=== PATIENT | female | born 1990 | race Hispanic/Latino ===

== ENCOUNTER 2019-11-03 23:07 | Emergency (ER) | payer SELFPAY ==
--- NOTE | 2019-11-03 23:34 | Emergency Department Report ---
<CHUY TREVIZOAlonzo - Last Filed: 11/04/19 02:39> History of Present Illness - General Chief Complaint: Overdose Stated Complaint: ALTERED MENTAL STATUS Time Seen by Provider: 11/03/19 23:24 Source: patient, EMS Mode of arrival: Stretcher Limitations: No Limitations - History of Present Illness Initial Comments: 28 yo F, found at [facility] parking lot unresponsive. Pt overdosed on heroine. Initial GCS of 3. pt was given 2mg Narcan by EMS, now A&O x 3. Patient denies SI or HI. 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 States she broke up with her significant other and decided to use heroin in order to feel better. States has been to rehab in the past. Denies any alcohol use or other drug use. MD Complaint: accidental overdose -: This evening Context: Intentional Overdose: relationship problems Context: Accidental Overdose: wanted to get high Treatments Prior to Arrival: narcan - Related Data Previous Rx's Medication Instructions Recorded Last Taken Type Naloxone HCl [Narcan Nasal [place]] 4 mg NS PRN PRN #1 spray 11/04/19 Unknown Rx Allergies Allergy/AdvReac Type Severity Reaction Status Date / Time No Known Allergies Allergy Unverified 11/03/19 23:31 ED Review of Systems Comment: All other systems reviewed and negative Psychiatric: denies: suicidal thoughts ED Past Medical Hx - Past Medical History Previous Medical History?: Yes Hx Psychiatric Treatment: Yes (Bi-polar) - Social History Smoking Status: Current Every Day Smoker Substance Use Type: Alcohol - Medications Home Medications: Home Medications Medication Instructions Recorded Confirmed Last Taken Type Naloxone HCl [Narcan Nasal [place]] 4 mg NS PRN PRN #1 spray 11/04/19 Unknown Rx ED Physical Exam - General Limitations: No Limitations General appearance: lethargic (but arousable) - Head Head exam: Present: atraumatic, normocephalic - Eye Eye exam: Present: normal appearance, PERRL, EOMI - ENT ENT exam: Present: mucous membranes moist - Neck Neck exam: Present: normal inspection - Respiratory Respiratory exam: Present: normal lung sounds bilaterally. Absent: respiratory distress - Cardiovascular Cardiovascular Exam: Present: regular rate, normal rhythm - GI/Abdominal GI/Abdominal exam: Present: soft. Absent: distended, tenderness - Extremities Exam Extremities exam: Present: normal inspection, other (no obvious track russo or cellulitis) - Neurological Exam Neurological exam: Present: alert, oriented X3, CN II-XII intact. Absent: motor sensory deficit - Psychiatric Psychiatric exam: Present: normal affect, normal mood - Skin Skin exam: Present: warm, dry, intact, normal color ED Course - Reevaluation(s) Reevaluation #1: 11/04/19 01:40 Pt sleeping but easily arousable to name. Does not require additional narcan at this time. Vitals stable. Will continue to observe. ED Medical Decision Making - Lab Data Result diagrams: 11/03/19 23:37 11/03/19 23:37 - EKG Data -: EKG Interpreted by Me EKG shows normal: sinus rhythm, axis, intervals, QRS complexes, ST-T waves Rate: normal - Radiology Data Radiology results: report reviewed, image reviewed - Medical Decision Making 28 yo F presents to ED following accidental heroin overdose. Pt was found unresponsive, immediately improved w/ narcan given by EMS. Here in ED pt has been sleeping, but arousable to name. Has not required additional narcan. Pt has elevated WBCs. She is afebrile and vitals are stable. CXR shows atelecatasis, no infiltrate. Leukocytosis likely due to metabolic stress of overdosing. Pt reports she had been off of heroin for 1 year, but breakup w/ significant other caused her to use again. Has been to rehab in the past. Pt agrees to a mental health consult, which is pending. - Differential Diagnosis accidental heroin overdose ED Disposition Clinical Impression: Accidental heroin overdose Qualifiers: Encounter type: initial encounter Qualified Code(s): T40.1X1A - Poisoning by heroin, accidental (unintentional), initial encounter Disposition: DC-01 TO HOME OR SELFCARE Condition: Stable Instructions: Narcotic Abuse (ED) Additional Instructions: Do not drive or operate motor vehicles until cleared to do so by her primary care doctor. Follow-up with your primary care doctor within the next week. Recommend that patient does not consume alcohol, heroin, or recreational drugs. Consumption of the aforementioned may result in addiction, , disability, paralysis, loss of quality of life. Use the Narcan medication as needed for symptoms of opioid overdose, including change in mental status, sleepiness, respiratory depression. Return to the emergency room right away with new, worsened or different symptoms, or symptoms not present on the initial emergency room evaluation. Referrals: [facility] [Provider Group] - as needed <CHERYL HAIRSTON - Last Filed: 11/04/19 05:13> ED Review of Systems ROS: Stated complaint: ALTERED MENTAL STATUS Other details as noted in HPI ED Course Vital Signs 11/03/19 11/03/19 11/03/19 23:12 23:15 23:21 Temperature 97.8 F Pulse Rate 93 H 91 H 89 Respiratory 14 18 16 Rate Blood Pressure 105/70 105/70 Blood Pressure 105/70 [Left] O2 Sat by Pulse 96 92 Oximetry 11/03/19 11/03/19 11/03/19 23:29 23:30 23:45 Temperature Pulse Rate 89 85 Respiratory 16 16 11 L Rate Blood Pressure 103/65 109/65 Blood Pressure [Left] O2 Sat by Pulse 92 Oximetry 11/04/19 11/04/19 11/04/19 00:00 00:15 00:30 Temperature Pulse Rate 85 91 H 89 Respiratory 13 11 L 12 Rate Blood Pressure 100/70 111/60 101/67 Blood Pressure [Left] O2 Sat by Pulse 96 100 100 Oximetry 11/04/19 11/04/19 11/04/19 00:45 01:01 01:15 Temperature Pulse Rate 95 H 88 75 Respiratory 12 11 L 10 L Rate Blood Pressure 107/68 117/66 108/57 Blood Pressure [Left] O2 Sat by Pulse 100 100 Oximetry 11/04/19 11/04/19 11/04/19 01:30 01:45 02:00 Temperature Pulse Rate 74 86 72 Respiratory 10 L 11 L 11 L Rate Blood Pressure 121/72 124/79 117/70 Blood Pressure [Left] O2 Sat by Pulse 100 96 100 Oximetry 11/04/19 11/04/19 11/04/19 02:15 02:31 02:45 Temperature Pulse Rate 69 67 70 Respiratory 11 L 10 L 11 L Rate Blood Pressure 102/65 108/60 108/77 Blood Pressure [Left] O2 Sat by Pulse 97 99 Oximetry 11/04/19 11/04/19 03:00 03:15 Temperature Pulse Rate 76 88 Respiratory 12 13 Rate Blood Pressure 115/73 113/72 Blood Pressure [Left] O2 Sat by Pulse 99 98 Oximetry - Reevaluation(s) Reevaluation #2: 11/04/19 05:11 Patient is awake, alert, oriented, clinically sober, walking with a steady gait at this time, and exhibits decision-making capacity. Her mental status has continued to improve since she has been here. I went back in to evaluate the patient. She is not homicidal or suicidal. At this point in time, she indicates she can follow-up as an outpatient because she is concerned about exposure to the coronavirus. She will be discharged at this time. ED Medical Decision Making - Lab Data Result diagrams: 11/03/19 23:37 11/03/19 23:37 Critical care attestation.: If time is entered above; I have spent that time in minutes in the direct care of this critically ill patient, excluding procedure time. ED Disposition Is pt being admited?: No Does the pt Need Aspirin: No
[2019-11-03] MEDS ORDERED: SODIUM CHLORIDE 0.9% 1000 ML 1,000 ML IV ONE (23:36)
[2019-11-03 23:52] LABS: Hematocrit 37.4 % (30.3-42.9); Hemoglobin 12.2 gm/dl (10.1-14.3); Mean Corpuscular HGB Conc 33 % (30-34); Mean Corpuscular Volume 89 fl (79-97); Platelet Count 275 K/mm3 (140-440); Red Blood Count 4.23 M/mm3 (3.65-5.03); Red Cell Distribution Width 15.1 % (13.2-15.2)
[2019-11-04 00:30] LABS: BUN/Creatinine Ratio 16; Blood Urea Nitrogen 14 mg/dL (7-17); Calcium 8.8 mg/dL (8.4-10.2); Hemolysis Index 12
--- NOTE | 2019-11-04 01:55 | XRay Report ---
CHEST 1 VIEW 0113 INDICATION / CLINICAL INFORMATION: ams. COMPARISON: None available. FINDINGS: SUPPORT DEVICES: None HEART / MEDIASTINUM: No significant abnormality. LUNGS / PLEURA: Poor degree of inspiration is seen. Bibasilar atelectatic changes are noted. No defin ite areas of consolidation are seen. No pneumothorax. ADDITIONAL FINDINGS: No significant additional findings. IMPRESSION: Basilar atelectasis Signer Name: Maciej Castro MD Signed: 11/04/2019 1:50 AM Workstation Name: [id number]
[2019-11-04] MEDS ORDERED: NALOXONE 0.4 MG/1 ML INJ IV PRN (02:57)
[2019-11-04 03:10] LABS: Basophils % (Manual) 0 % (0.0-1.8); Eosinophils % (Manual) 0 % (0.0-4.3); Total Cells Counted 100
[2019-11-04 03:11] LABS: Platelet Estimate Consistent w Auto
[2019-11-04 03:27] VITALS: BP 113/72
== END 2019-11-04 05:20 | disposition home or self-care (01) ==
LOC: ED 23:07
DX: T40.1X1A Poisoning by heroin, accidental (unintentional), initial encounter (principal); F31.9 Bipolar disorder, unspecified; F17.200 Nicotine dependence, unspecified, uncomplicated; Z79.899 Other long term (current) drug therapy; Y92.89 Other specified places as the place of occurrence of the external cause
CPT/HCPCS: 36415; 71045; 80048; 84703; 85007; 85025; 93005; 99285; J7030; 80320; G0480